=== PATIENT | male | born 1955 | race Caucasian/White ===

== ENCOUNTER 2023-11-26 14:19 | Outpatient (AMB) | payer MEDICARE, SELFPAY ==
--- NOTE | 2023-11-26 14:30 | A.OFFPC_ITS ---
Vital Signs 11/26/23 14:36 11/26/23 15:10 Height 5 ft 11 in Weight 221 lb BMI 30.8 BP 145/87 H 132/78 Blood Pressure Location Lt brachial Lt brachial Position Sitting Pulse 67 Pulse Source Pulse Oximeter Pulse Oximetry (%) 97 Oxygen Delivery Method Room Air Intake Visit Reasons: est care Intake Note: [place] [facility] [place] [facility] [place]. Patient would like to discuss right sided hip pain with exertion. Patient reports itching around the anal area. Electromechanical Equipment Tester Required: No Accompanied by: Self / Same As Patient Allergies No Known Allergies Allergy (Verified 11/26/23 14:41) Medication List - Last Reconciled 12/04/23 by Mesha Lopez MD tamsulosin 0.4 mg PO DAILY 90 days Tobacco use date assessed: 11/26/23 Fall risk assessment: No Falls in past year Last assessed Fall Risk: 11/26/23 Dental Screening Dental Screen Date: 11/26/23 Did you have a dental visit in the last 12 months?: Yes Did you have a dental problem in the last 6 months where you did not have access to dental care?: No Was dental information given to patient?: Patient has dentist HPI HPI Comments History of Present Illness Details The patient is a 68-year-old male with a past medical history of gout, hemorrhoids presenting for follow-up. MSK: Reports increased right hip pain. Pain with walking, laying on the hip. Chronic but worsening. Gout: No interval episodes. 2 episodes in 2021 to 2022. Patient reports increased frequency, hesitancy with urination Colonoscopy 03/10/2019-5 year repeat was recommended ROS see HPI. PHYSICAL EXAM: GENERAL: Alert and oriented x 3. NAD EYES: EOMI. Anicteric. HENT: Moist mucous membranes. No scleral icterus. No cervical lymphadenopathy. LUNGS: Clear to auscultation bilaterally. CARDIOVASCULAR: Regular rate and rhythm. No murmur. No JVD. ABDOMEN: Soft, non-tender +bs EXTREMITIES: No edema. Non-tender. SKIN: No rashes or lesions. Warm. NEUROLOGIC: No focal neurological deficits. CN II-XII grossly intact PSYCHIATRIC: Cooperative. Appropriate mood and affect [facility] Medical History Obese Hemorrhoids Gout Surgical History Hx of tooth extraction History of colonoscopy Family History Mother Kidney disease Father Kidney disease Social History Household Members: Spouse Housing: House Are you a primary infant childcare provider to a significant other at home: No Do you presently have visiting nurse or other home services: No Alcohol intake: current Alcohol intake frequency: a few times a week Alcohol type: beer Patient Tobacco Use Status: Current someday Tobacco user Tobacco use type: Cigar (When golfing and nothing consistent.) e-Cigarette/Vaping Use: Never Used service: No Current occupational status: retired Gender identity: Male Cognitive needs: No Hearing needs: No Vision needs: Yes (wears glasses) Questionnaire PHQ-9 Over the last 2 weeks, how often have you been bothered by any of the following problems? 1. Little interest or pleasure in doing things: not at all 2. Feeling down, depressed, or hopeless: not at all 3. Trouble falling or staying asleep, or sleeping too much: not at all 4. Feeling tired or having little energy: several days 5. Poor appetite or overeating: not at all 6. Feeling bad about yourself - or that you are a failure or have let yourself or your family down: not at all 7. Trouble concentrating on things, such as reading the newspaper or watching television: not at all 8. Moving or speaking so slowly that other people could have noticed. Or the opposite - being so fidgety or restless that you have been moving around a lot more than usual: not at all 9. Thoughts that you would be better off or of hurting yourself in some way: not at all Total score: 1 Depression Screening Interpretation: Negative (neg) Depression Screening Done: Yes 34844 - PHQ-9 Billing: Yes Source: Developed by Drs. Artemio Pool, Raine Coates, Laith Sood and colleagues, with an educational ben from [employer]. Thrive Questionnaire Date Thrive assessed: 11/26/23 I am a: Patient What is your living situation today?: I have a steady place to live Within the past 12 months, did the food you bought not last and you didn't have the money to get more?: Never true Within the past 12 months, did you worry whether your food would run out before you got money to buy more?: Never true Do you have trouble paying for medicines?: No Do you have trouble getting transportation to medical appointments?: No Do you have trouble paying your heating and electricity bill?: No Do you have trouble taking care of your child, family member or friend?: No Do you have trouble with day-to-day activities such as bathing, preparing meals, shopping, managing finances, etc.?: No Are you currently unemployed and looking for a job?: No Are you interested in more education?: No Please select the resources that you would like help with: None Currently or been in a relationship where the following occur: No concerns reported THRIVE Score: 0 AUDIT C Alcohol Use Questionnaire (AUDIT-C) 1. How often do you have a drink containing alcohol?: Never 3. How often do you have six or more drinks on one occasion?: Never Total Score: 0 MIRANDA-7 AMB Questionnaire MIRANDA-7 Date MIRANDA - 7 assessed: 11/26/23 Feeling nervous, anxious, or on edge: 0 = Not at all Not being able to stop or control worryin = Not at all Worrying too much about different things: 0 = Not at all Trouble relaxin = Not at all Being so restless that it is hard to sit still: 0 = Not at all Becoming easily annoyed or irritable: 1 = Several days Feeling afraid as if something awful might happen: 0 = Not at all Total MIRANDA-7 score (0-4 normal; 5-9 mild; 10-14 moderate; 15-21 severe): 1 Source: Developed by Drs. Artemio Pool, Raine Coates, Laith Sood and colleagues, with an educational ben from [employer]. MIRANDA-7 Assessment Billing MIRANDA-7 Assessment Tool: MIRANDA-7 Assessment 64673 Physical exam (Primary Care) Vital Signs: Last Vital Signs Pulse 67 11/26/23 14:36 BP 132/78 11/26/23 15:10 Pulse Ox 97 11/26/23 14:36 Oxygen Delivery Method Room Air 11/26/23 14:36 BMI result Body Mass Index 30.8 Tobacco/Smoking Status: Tobacco use Status Tobacco use date assessed 11/26/23 11/26/23 14:51 Patient Tobacco Use Status Current someday Tobacco 11/26/23 14:51 Tobacco use type Cigar (When golfing and 11/26/23 14:51 nothing consistent.) e-Cigarette/Vaping Use Never Used 11/26/23 14:46 PHQ-9: PHQ-9 Score PHQ-9: Total score 1 12/04/23 09:33 Depression Screening Interpretation: Negative (neg) Thrive Assessment: Date of Thrive Assessment Date Thrive assessed 11/26/23 11/26/23 14:51 Currently or been in a relationship where the following occur: No concerns reported Assessment and Plan Assessment & Plan (1) Gout: Code(s): M10.9 - Gout, unspecified Qualifiers: Chronicity: unspecified Gout etiology: unspecified cause Gout site: unspecified site Qualified Code(s): M10.9 - Gout, unspecified (2) Hemorrhoids: Code(s): K64.9 - Unspecified hemorrhoids Qualifiers: Hemorrhoid type: unspecified Qualified Code(s): K64.9 - Unspecified hemorrhoids Plan: Some anal pruritus. Topical cream, fam recommended (3) Polyuria: Code(s): R35.89 - Other polyuria Plan: Trial tamsulosin. Referral to urology (4) Right hip pain: Code(s): M25.551 - Pain in right hip Plan: referral to orthopedics Orders: Orders Complete Blood Count Auto Diff 11/26/23 Z13.0 - Encounter for screening for diseases of the blood and blood-forming organs and certain disorders involving the immune mechanism, Z13.228 - Encounter for screening for other metabolic disorders, Z12.5 - Encounter for screening for malignant neoplasm of prostate, M10.9 - Gout, unspecified, R35.89 - Other polyuria Comprehensive Met. Panel 11/26/23 Z13.0 - Encounter for screening for diseases of the blood and blood-forming organs and certain disorders involving the immune mechanism, Z13.228 - Encounter for screening for other metabolic disorders, Z12.5 - Encounter for screening for malignant neoplasm of prostate, M10.9 - Gout, unspecified, R35.89 - Other polyuria Prostate Specific Antigen 11/26/23 Z13.0 - Encounter for screening for diseases of the blood and blood-forming organs and certain disorders involving the immune mechanism, Z13.228 - Encounter for screening for other metabolic disorders, Z12.5 - Encounter for screening for malignant neoplasm of prostate, M10.9 - Gout, unspecified, R35.89 - Other polyuria Lipid Panel 11/26/23 Z13.0 - Encounter for screening for diseases of the blood and blood-forming organs and certain disorders involving the immune mechanism, Z13.228 - Encounter for screening for other metabolic disorders, Z12.5 - Encounter for screening for malignant neoplasm of prostate, M10.9 - Gout, unspecified, R35.89 - Other polyuria Referrals Gastroenterology Referral Z12.11 - Encounter for screening for malignant neoplasm of colon Urology Referral Z13.0 - Encounter for screening for diseases of the blood and blood-forming organs and certain disorders involving the immune mechanism, Z13.228 - Encounter for screening for other metabolic disorders, Z12.5 - Encounter for screening for malignant neoplasm of prostate, M10.9 - Gout, unspecified, R35.89 - Other polyuria Orthopedics Referral M25.551 - Pain in right hip Medications: New tamsulosin 0.4 mg PO DAILY 90 caps 3RF 90 days Coding Level of Care Code Est Pt Level 5 (18752) Diagnoses Gout, unspecified cause, unspecified chronicity, unspecified site M10.9 Chronicity: unspecified Gout etiology: unspecified cause Gout site: unspecified site Hemorrhoids, unspecified hemorrhoid type K64.9 Hemorrhoid type: unspecified Polyuria R35.89 Right hip pain M25.551 Additional Codes MIRANDA-7 Assessment Billing - MIRANDA-7 Assessment Tool: MIRANDA-7 Assessment 93878 ([id number]) Time Spent (min) 48
[2023-11-26 14:36] VITALS: BP 145/87; PULSE 67; O2SAT 97; BMI 30.8
[2023-11-26 15:10] VITALS: BP 132/78
== END 2023-11-26 15:38 | disposition home or self-care (01) ==
PROVIDERS: Visit Provider Internal Medicine
DX: M10.9 Gout, unspecified (principal); K64.9 Unspecified hemorrhoids; R35.89 Other polyuria; M25.551 Pain in right hip
CPT/HCPCS: 99215

== ENCOUNTER 2023-11-26 15:39 | Outpatient (REF) | payer MEDICARE, SELFPAY ==
[2023-11-26 17:37] LABS: MANUAL DIFF FLAG NO
[2023-11-26 17:45] LABS: Basophils Absolute Auto 0.1 X10*3/uL (0.0-0.2); Basophils Percent Auto 1.4 % (0-2); Eosinophils Absolute Auto 0.2 X10*3/uL (0.0-0.4); Hematocrit 47.8 % (42.0-52.0); Hemoglobin 15.9 g/dl (14.0-18.0); Imm Gran Abs Auto 0.03 X10*3/uL (0.00-0.03); Imm Gran Pct Auto 0.4 % (0.0-0.4); Lymphocytes Absolute Auto 2.2 X10*3/uL (1.2-4.9); Lymphocytes Percent Auto 25.6 % (20-40); Mean Corpuscular HGB Conc 33.3 g/dl (31.0-36.0); Mean Corpuscular Hemoglobin 33.1 pg (27.0-33.0); Mean Corpuscular Volume 99.4 fL (80.0-98.0); Monocytes Percent Auto 11.7 % (2-11); Neutrophils Percent Auto 58.9 % (45-73); Platelet Count 200 X10*3/uL (160-400); Red Blood Count 4.81 X10*6/uL (4.60-5.80); Red Cell Distribution Width 12.7 % (11.0-16.0); White Blood Count 8.4 X10*3/uL (4.8-10.8)
[2023-11-26 17:56] LABS: Alanine Aminotransferase 33 U/L (0-40); Albumin Level 4.2 g/dL (3.5-5.0); Alkaline Phosphatase 59 U/L (39-117); Anion Gap 14 (12-20); Aspartate Amino Transferase 27 U/L (5-37); Bilirubin Total 0.4 mg/dL (0.0-1.0); Blood Urea Nitrogen 22 mg/dL (9-16); Calcium 9.5 mg/dL (8.4-10.2); Carbon Dioxide 27 mmol/L (22-29); Chloride 103 mmol/L (96-108); Cholesterol 186 mg/dL (<200); Estimated Glomerular Filt Rate 56; Glucose Random 82 mg/dL (60-115); HDL Cholesterol 45 mg/dL (>40); LDL Cholesterol Calculated 73 mg/dL (<100); Potassium 4.3 mmol/L (3.3-5.1); Sodium 140 mmol/L (135-145); Triglycerides 343 mg/dL (<150)
[2023-11-26 18:15] LABS: Prostate Specific Antigen 0.18 ng/mL (<0.05-4.0)
== END 2023-11-26 15:40 | disposition home or self-care (01) ==
LOC: HO.WFDLDS 15:39
PROVIDERS: Visit Provider Internal Medicine
DX: Z13.0 Encounter for screening for diseases of the blood and blood-forming organs and certain disorders involving the immune mechanism (principal); Z13.228 Encounter for screening for other metabolic disorders; M10.9 Gout, unspecified; R35.89 Other polyuria; Z12.5 Encounter for screening for malignant neoplasm of prostate
CPT/HCPCS: 36415; 80053; 80061; 84153; 85025

== ENCOUNTER 2024-01-29 08:37 | Outpatient (AMB) | payer MEDICARE, SELFPAY ==
--- NOTE | 2024-01-29 09:07 | A.OFFVIS_ITS ---
Intake Visit Reasons: polyuria Intake Note: New Patient presents for initial visit for Polyuria Urology Medications: tamsulosin Blood Thinner: none PVR: 32ml's Cryptologic Support Specialist Required: No Accompanied by: Self / Same As Patient Allergies No Known Allergies Allergy (Verified 01/29/24 10:34) Medication List - Last Reconciled 01/29/24 by BEL Montgomery tamsulosin 0.4 mg PO DAILY 90 days HPI Comments Details: Juan Ramon is a pleasant 68-year-old male patient. He has a past medical history of gout, hemorrhoids, and obesity. He presents to the office today as a new patient for a longstanding history of lower urinary tract symptoms. In discussion with the patient today he reports noting over the last 4-5 years noting ongoing issues with long periods of taking time to empty his bladder as well as urinary hesitancy. He reports having followed up with his PCP at which time he was started on Flomax in recommendations were made for urology referral for further assessment evaluation. He reports noting Flomax has been helpful. In review of patient's chart it appears PSA 12/10 0.2. When asked he denies urinary urgency, urinary frequency, incontinence, nocturia, hematuria, dysuria, foul smelling urine, flank pain, fever, and or chills. We discussed at length potential causes of lower urinary tract symptoms patient is experiencing. In office urinalysis results reviewed with the patient today. PVR 32 mL. Discussed obtaining retroperitoneal ultrasound for further assessment evaluation. Discussed possible near future in office cystoscopy for further assessment evaluation. He otherwise offers no other issues or concerns at this time. [facility] Medical History Obese Hemorrhoids Gout Surgical History Hx of tooth extraction History of colonoscopy Family History Mother Kidney disease Father Kidney disease Social History Household Members: Spouse Housing: House Are you a primary laboratory animal caretaker to a significant other at home: No Do you presently have visiting nurse or other home services: No 75 years or older and lives alone: No Alcohol intake: current Alcohol intake frequency: a few times a week Alcohol type: beer Patient Tobacco Use Status: Current someday Tobacco user Tobacco use type: Cigar (When golfing and nothing consistent.) e-Cigarette/Vaping Use: Never Used service: No Current occupational status: retired Gender identity: Male Cognitive needs: No Hearing needs: No Vision needs: Yes (wears glasses) Review of Systems Const All systems reviewed & are unremarkable except as noted in HPI and below Physical Exam Const General: cooperative, healthy appearing, comfortable, no acute distress, well developed, alert and awake Orientation/consciousness: patient oriented x3 Limitations: no limitations HEENT Head: Yes normal to inspection, Yes normocephalic and Yes atraumatic Ears: hearing grossly normal bilaterally Eyes General: appearance normal, both eyes and all related structures Neck Neck: Yes normal visual inspection and Yes trachea midline Chest Chest palpation & inspection: normal inspection of the chest Resp Effort & Inspection: normal respiratory effort and able to speak in complete sentences Cardio Rate: regular rate GI Inspection: Yes normal to inspection General: Yes no CVA tenderness Back/Spine/Pelvis Back: no CVA tenderness Skin General skin exam: no rashes or lesions noted Neuro General: patient oriented x3 Extrem General: Yes normal to inspection Psych Appearance: grossly normal and well kempt Mental Status: mental status grossly normal Speech and movement: Normal speech and movement present and Clear speech present Affect: normal affect Attitude: cooperative Thought process: Normal thought process present Thought content: Normal thought content present Insight: Fair insight present (Psych) Judgement: Fair judgement present (Psych) Office Procedures Post Void Residual Post Residual Void Post Void Residual (PVR): 32 [id number] Void Residual by ultrasound Results AMB Urinalysis, Automated UA Leukoctes 0 Lizandro/uL Last Edit by Jayy Tovar on 01/29/24 09:21 UA Nitrite Last Edit by Jayy Tovar on 01/29/24 09:21 UA Urobilinogen 0.2 mg/dL Last Edit by Jayy Tovar on 01/29/24 09:21 UA Protein 0 mg/dL Last Edit by Jayy Tovar on 01/29/24 09:21 UA pH 7.0 Last Edit by Jayy Tovar on 01/29/24 09:21 UA Blood 0 Asael/uL Last Edit by Jayy Tovar on 01/29/24 09:21 UA Specific [place] 1.005 Last Edit by Jayy Tovar on 01/29/24 09:21 UA Ketone Last Edit by Jayy Tovar on 01/29/24 09:21 UA Bilirubin 0 mg/dL Last Edit by Jayy Tovar on 01/29/24 09:21 UA Glucose 0 mg/dL Last Edit by Jayy Tovar on 01/29/24 09:21 Results Reviewed Results Reviewed: Laboratory Last Values Urine pH (Auto) 7.0 01/29/24 09:20 Specific [place] (Auto) 1.005 01/29/24 09:20 Urine Protein (Auto) 0 mg/dL 01/29/24 09:20 Glucose (UA)(Auto) 0 mg/dL 01/29/24 09:20 Urine Blood (Auto) 0 Asael/uL 01/29/24 09:20 Urine Bilirubin (Auto) 0 mg/dL 01/29/24 09:20 Urine Urobilinogen (Auto) 0.2 mg/dL 01/29/24 09:20 Leukocyte Esterase (Auto) 0 Lizandro/uL 01/29/24 09:20 Assessment & Plan Assessment & Plan (1) History of urinary hesitancy: Code(s): Z87.898 - Personal history of other specified conditions Category: Medical (2) Weak urinary stream: Code(s): R39.12 - Poor urinary stream Category: Medical Plan In office urinalysis results reviewed with the patient today; as noted above. PVR 32 mL. Continue Flomax as patient reports this has been helpful; discussed increase to 0.8 mg Will obtain retroperitoneal ultrasound for further assessment evaluation. Discussed potential causes for lower urinary tract symptoms patient is experiencing. Recent PSA results reviewed with the patient today; as noted above. MIO offered however deferred. Discussed possible near future in office cystoscopy if symptoms persist and/or worsen. Follow-up in 1-3 months with imaging to be completed prior; or sooner with any issues, concerns, and or questions. Orders: Orders AMB Urinalysis Automated Today Z13.9 - Encounter for screening, unspecified US retroperitoneal comp Today Z87.898 - Personal history of other specified conditions AMB Post Void Residual by ultrasound Today R35.89 - Other polyuria Medications: Changed From tamsulosin 0.4 mg PO DAILY 90 days 90 caps 3RF To tamsulosin 0.8 mg (2 x 0.4 mg) PO DAILY 180 caps 0RF 90 days Patient Instructions: The patient had an opportunity to ask questions regarding the treatment plan. All questions were answered. Physical exam, labs, and imaging were discussed and reviewed in detail. As well as risks, benefits, and discussion of treatment choices. No major barriers to understanding were identified. The patient expressed understanding and agreement with the above treatment plan. The patient was made aware they should contact our office by phone for worsening of their current condition, the appearance of new symptoms, or with any questions or concerns. Compliance is encouraged with any medications and follow up testing that is ordered. It is a privilege to be allowed the opportunity to participate in? your urological care.? Again, if you have any questions or concerns If you have any questions or concerns please do not hesitate to contact me. The office is [phone]. This note is constructed using voice recognition software. While every effort has been made to ensure accuracy academic advisement director errors may have been included. Yours sincerely, BEL Montgomery Coding Level of Care Code New Pt Level 3 (66027) Diagnoses History of urinary hesitancy Z87.898 Weak urinary stream R39.12 CPT Codes Post Residual Void - PVR CPT Code: 53475-Ratd Void Residual by ultrasound ([id number])
== END 2024-01-29 10:03 | disposition home or self-care (01) ==
PROVIDERS: Visit Provider Nurse Practitioner Family
DX: Z87.898 Personal history of other specified conditions (principal); R39.12 Poor urinary stream; Z13.9 Encounter for screening, unspecified
CPT/HCPCS: 99203

== ENCOUNTER → 2024-01-29 08:37 | Outpatient (BNVA) | payer MEDICARE, SELFPAY | PROVIDERS: Visit Provider Nurse Practitioner Family | DX: R35.89 Other polyuria (principal); R39.12 Poor urinary stream; Z87.898 Personal history of other specified conditions | CPT/HCPCS: 51798; 81003; 99202 ==

== ENCOUNTER 2024-02-17 12:30 | Outpatient (REF) | payer MEDICARE, SELFPAY ==
--- NOTE | ~2024-02-17 | US_ITS ---
EXAMINATION: US RETROPERITONEAL COMPLETE (RENAL) CLINICAL INFORMATION: Urinary hesitancy. COMPARISON: None available. TECHNIQUE: Real-time imaging of the kidneys and bladder. FINDINGS: RIGHT KIDNEY: 10.4 x 7.0 x 4.0 cm (SAG x AP x TRV). The kidney is normal in size, contour, and echogenicity. Renal cortical thickness is normal. No calculi or focal parenchymal lesions. No hydronephrosis. There is a 3.7 cm anechoic structure and the renal hilum without flow on color Doppler interrogation. LEFT KIDNEY: 11.7 x 6.3 x 5.0 cm (SAG x AP x TRV). The kidney is normal in size, contour, and echogenicity. Renal cortical thickness is normal. No calculi or focal parenchymal lesions. No hydronephrosis. BLADDER: Well distended and fluid-filled. Bilateral ureteral jets are demonstrated. Prevoid bladder volume is 532 mL. Postvoid bladder volume is 114 mL. PROSTATE GLAND: The prostate volume is 23.0 mL. Prostate gland measures 4.4 cm in maximum dimension. US/US retroperitoneal comp IMPRESSION: 3.7 cm cyst versus less likely extrarenal pelvis, right kidney. No hydronephrosis.. Electronically signed by: Bernardo Villarreal MD 03/25/2024 10:46 AM EST
== END 2024-02-17 12:31 | disposition home or self-care (01) ==
LOC: HO.US 12:30
PROVIDERS: PCP Internal Medicine; Visit Provider Nurse Practitioner Family
DX: Z87.898 Personal history of other specified conditions (principal)
CPT/HCPCS: 76770

== ENCOUNTER → 2024-02-17 12:33 | Outpatient (BNV) | payer MEDICARE, SELFPAY | PROVIDERS: PCP Internal Medicine; Visit Provider Radiology Diagnostic Radiology | DX: R39.11 Hesitancy of micturition (principal) | CPT/HCPCS: 76770 ==

== ENCOUNTER 2024-03-19 09:19 | Outpatient (AMB) | payer MEDICARE, SELFPAY ==
--- NOTE | 2024-03-19 09:22 | A.OFFVIS_ITS ---
Intake Visit Reasons: 2m/US(set) Intake Note: Patient presents today for follow up on: weak urinary stream and ultrasound results Imaging completed: 02/17/24 Urology Medications: tamsulosin Blood Thinner: none PVR: 18ml's Manager Winter Required: No Accompanied by: Self / Same As Patient Allergies No Known Allergies Allergy (Verified 03/19/24 10:07) Medication List - Last Reconciled 03/19/24 by BEL Montgomery tamsulosin 0.8 mg (2 x 0.4 mg) PO DAILY 90 days HPI Comments Details: Juan Ramon is a pleasant 68-year-old male patient. He has a past medical history of gout, hemorrhoids, and obesity. He presents to the office today for follow-up. Of note, patient was seen approximately 6 weeks ago as a new patient for a longstanding history of lower urinary tract symptoms at which time a retroperitoneal ultrasound was ordered for further assessment evaluation. These results reviewed with the patient today. Retroperitoneal ultrasound 02/10 notes bilateral kidneys are normal in size, contour, and echogenicity. Bilateral kidneys with no lesions, calculi, and or hydronephrosis. The bladder is well distended. Bilateral ureteral jets are demonstrated. Pre void bladder volume is approximately 530 mL. Postvoid bladder volume is approximately 115 mL. The prostate volume is 23 mL prostate gland measures 4.4 cm in maximum dimension. He reports feeling Flomax has been somewhat helpful in helping him empty his bladder. He reports his main concern was feeling it takes a long periods of time to empty his bladder as well as urinary hesitancy. PSA 12/10 0.2. When asked he denies urinary urgency, urinary frequency, incontinence, nocturia, hematuria, dysuria, foul smelling urine, flank pain, fever, and or chills. We discussed at length potential causes of lower urinary tract symptoms patient is experiencing. In office urinalysis results reviewed with the patient today. PVR 18 mL. Discussed possible near future in office cystoscopy for further assessment evaluation if symptoms continue and or worsen. He otherwise offers no other issues or concerns at this time. [facility] Medical History Obese Hemorrhoids Gout Surgical History Hx of tooth extraction History of colonoscopy Family History Mother Kidney disease Father Kidney disease Social History Household Members: Spouse Housing: House Are you a primary direct care worker to a significant other at home: No Do you presently have visiting nurse or other home services: No 75 years or older and lives alone: No Alcohol intake: current Alcohol intake frequency: a few times a week Alcohol type: beer Patient Tobacco Use Status: Current someday Tobacco user Tobacco use type: Cigar (When golfing and nothing consistent.) e-Cigarette/Vaping Use: Never Used service: No Current occupational status: retired Gender identity: Male Cognitive needs: No Hearing needs: No Vision needs: Yes (wears glasses) Review of Systems Const All systems reviewed & are unremarkable except as noted in HPI and below Physical Exam Const General: cooperative, healthy appearing, comfortable, no acute distress, well developed, alert and awake Orientation/consciousness: patient oriented x3 Limitations: no limitations HEENT Head: Yes normal to inspection, Yes normocephalic and Yes atraumatic Ears: hearing grossly normal bilaterally Eyes General: appearance normal, both eyes and all related structures Neck Neck: Yes normal visual inspection and Yes trachea midline Chest Chest palpation & inspection: normal inspection of the chest Resp Effort & Inspection: normal respiratory effort and able to speak in complete sentences Cardio Rate: regular rate GI Inspection: Yes normal to inspection General: Yes no CVA tenderness Back/Spine/Pelvis Back: no CVA tenderness Skin General skin exam: no rashes or lesions noted Neuro General: patient oriented x3 Extrem General: Yes normal to inspection Psych Appearance: grossly normal and well kempt Mental Status: mental status grossly normal Speech and movement: Normal speech and movement present and Clear speech present Affect: normal affect Attitude: cooperative Thought process: Normal thought process present Thought content: Normal thought content present Insight: Fair insight present (Psych) Judgement: Fair judgement present (Psych) Office Procedures Post Void Residual Post Residual Void Post Void Residual (PVR): 18 [id number] Void Residual by ultrasound Results AMB Urinalysis, Automated UA Leukoctes 0 Lizandro/uL Last Edit by Jayy Tovar on 03/19/24 09:59 UA Nitrite Last Edit by Jayy Tovar on 03/19/24 09:59 UA Urobilinogen 0.2 mg/dL Last Edit by Jayy Tovar on 03/19/24 09:59 UA Protein 0 mg/dL Last Edit by Gengonick Tovar on 03/19/24 09:59 UA pH 7.5 Last Edit by Headroomdeejay [employer] on 03/19/24 09:59 UA Blood 0 Asael/uL Last Edit by Headroomdeejay Tovar on 03/19/24 09:59 UA Specific Everest 1.010 Last Edit by Gengonick Tovar on 03/19/24 09:59 UA Ketone Last Edit by Headroomdeejay Tovar on 03/19/24 09:59 UA Bilirubin 0 mg/dL Last Edit by Gengonick Tovar on 03/19/24 09:59 UA Glucose 0 mg/dL Last Edit by Headroomdeejay Tovar on 03/19/24 09:59 Results Reviewed Results Reviewed: Laboratory Last Values Urine pH (Auto) 7.5 03/19/24 09:32 Specific Everest (Auto) 1.010 03/19/24 09:32 Urine Protein (Auto) 0 mg/dL 03/19/24 09:32 Glucose (UA)(Auto) 0 mg/dL 03/19/24 09:32 Urine Blood (Auto) 0 Asael/uL 03/19/24 09:32 Urine Bilirubin (Auto) 0 mg/dL 03/19/24 09:32 Urine Urobilinogen (Auto) 0.2 mg/dL 03/19/24 09:32 Leukocyte Esterase (Auto) 0 Lizandro/uL 03/19/24 09:32 Date of Service: 02/17/24 EXAMINATION: US RETROPERITONEAL COMPLETE (RENAL) FINDINGS: RIGHT KIDNEY: 10.4 x 7.0 x 4.0 cm (SAG x AP x TRV). The kidney is normal in size, contour, and echogenicity. Renal cortical thickness is normal. No calculi or focal parenchymal lesions. No hydronephrosis. There is a 3.7 cm anechoic structure and the renal hilum without flow on color Doppler interrogation. LEFT KIDNEY: 11.7 x 6.3 x 5.0 cm (SAG x AP x TRV). The kidney is normal in size, contour, and echogenicity. Renal cortical thickness is normal. No calculi or focal parenchymal lesions. No hydronephrosis. BLADDER: Well distended and fluid-filled. Bilateral ureteral jets are demonstrated. Prevoid bladder volume is 532 mL. Postvoid bladder volume is 114 mL. PROSTATE GLAND: The prostate volume is 23.0 mL. Prostate gland measures 4.4 cm in maximum dimension. IMPRESSION: 3.7 cm cyst versus less likely extrarenal pelvis, right kidney. No hydronephrosis. Assessment & Plan Assessment & Plan (1) History of urinary hesitancy: Code(s): Z87.898 - Personal history of other specified conditions Category: Medical (2) Weak urinary stream: Code(s): R39.12 - Poor urinary stream Category: Medical Plan In office urinalysis results reviewed with the patient today; as noted above. PVR 18mLs. Continue Flomax as patient reports this has been helpful Recent retroperitoneal ultrasound results reviewed with the patient today; as noted above. Discussed potential causes for lower urinary tract symptoms patient is experiencing. Discussed possible near future in office cystoscopy if symptoms persist and/or worsen. Follow-up in 1 year with PSA and PVR; or sooner with any issues, concerns, and or questions. Orders: Orders AMB Urinalysis Automated 03/19/24 Z13.9 - Encounter for screening, unspecified Prostate Specific Antigen 1 Year R39.12 - Poor urinary stream, Z87.898 - Personal history of other specified conditions AMB Post Void Residual by ultrasound 03/19/24 R39.12 - Poor urinary stream Patient Instructions: The patient had an opportunity to ask questions regarding the treatment plan. All questions were answered. Physical exam, labs, and imaging were discussed and reviewed in detail. As well as risks, benefits, and discussion of treatment choices. No major barriers to understanding were identified. The patient expressed understanding and agreement with the above treatment plan. The patient was made aware they should contact our office by phone for worsening of their current condition, the appearance of new symptoms, or with any questions or concerns. Compliance is encouraged with any medications and follow up testing that is ordered. It is a privilege to be allowed the opportunity to participate in? your urological care.? Again, if you have any questions or concerns If you have any questions or concerns please do not hesitate to contact me. The office is [phone]. This note is constructed using voice recognition software. While every effort has been made to ensure accuracy technical support coordinator errors may have been included. Yours sincerely, CRISTAL Montgomery-ALEYDA Coding Level of Care Code Est Pt Level 3 (30444) Diagnoses History of urinary hesitancy Z87.898 Weak urinary stream R39.12 CPT Codes Post Residual Void - PVR CPT Code: 33383-Easv Void Residual by ultrasound ([id number])
== END 2024-03-19 10:16 | disposition home or self-care (01) ==
LOC: HO.HUSH 09:20
PROVIDERS: Visit Provider Nurse Practitioner Family
DX: Z87.898 Personal history of other specified conditions (principal); R39.12 Poor urinary stream
CPT/HCPCS: 99213

== ENCOUNTER → 2024-03-19 09:19 | Outpatient (BNVA) | payer MEDICARE, SELFPAY | PROVIDERS: Visit Provider Nurse Practitioner Family | DX: R39.12 Poor urinary stream (principal); Z87.898 Personal history of other specified conditions | CPT/HCPCS: 51798; 81003; 99212 ==

== ENCOUNTER 2024-05-25 09:09 | Outpatient (AMB) | payer MEDICARE, SELFPAY ==
--- NOTE | 2024-05-25 09:13 | MHC.PC.OV ---
Vital Signs 05/25/24 09:20 05/25/24 09:28 Height 5 ft 11 in Weight 218 lb 8 oz BMI 30.5 BP 142/94 H 128/82 Blood Pressure Location Lt brachial Lt brachial Position Sitting Sitting Pulse 66 Pulse Source Pulse Oximeter Pulse Oximetry (%) 96 Oxygen Delivery Method Room Air Intake Visit Reasons: Swelling Ankles Intake Note: Swelling ankles about 7 days ago, left side. Injured ankle over the summer. Managed Care Liaison Required: No Allergies No Known Allergies Allergy (Verified 05/25/24 09:14) Tobacco use date assessed: 05/25/24 Dental Screening Dental Screen Date: 11/26/23 HPI HPI Comments History of Present Illness Details The patient is a 68-year-old male with a past medical history of gout, hemorrhoids presenting for follow-up. MSK: Patient is presenting for left ankle pain and swelling. Explains that a couple months ago walking in field at concert. Twisted the left ankle in a divot. Now has intermittent left ankle swelling and discomfort. Last visit with right hip pain-Patient went to Dr Woods, went to physical therapy with great reduction in pain and would like to pursue PT for the ankle Reports increased right hip pain. Pain with walking, laying on the hip. Chronic but worsening. Gout: No interval episodes. 2 episodes in 2021 to 2022. Patient reports increased frequency, hesitancy with urination. Saw urology. On flomax Colonoscopy 03/10/2019-5 year repeat was recommended. he was referred ROS see HPI. +sinus congestion, cough x 2 days PHYSICAL EXAM: GENERAL: Alert and oriented x 3. NAD EYES: EOMI. Anicteric. HENT: Moist mucous membranes. Sinus congestion LUNGS: Clear to auscultation bilaterally. CARDIOVASCULAR: Regular rate and rhythm. No murmur. No JVD. ABDOMEN: Soft, non-tender +bs EXTREMITIES: No edema. Non-tender. SKIN: No rashes or lesions. Warm. NEUROLOGIC: No focal neurological deficits. CN II-XII grossly intact PSYCHIATRIC: Cooperative. Appropriate mood and affect [facility] Medical History Obese Hemorrhoids Gout Surgical History Hx of tooth extraction History of colonoscopy Family History Mother Kidney disease Father Kidney disease Social History Household Members: Spouse Housing: House Are you a primary care team coordinator scheduler to a significant other at home: No Do you presently have visiting nurse or other home services: No 75 years or older and lives alone: No Alcohol intake: current Alcohol intake frequency: a few times a week Alcohol type: beer Patient Tobacco Use Status: Current someday Tobacco user Tobacco use type: Cigar (When golfing and nothing consistent.) e-Cigarette/Vaping Use: Never Used Use of substances other than those prescribed or required for medical reasons: No service: No Current occupational status: retired Gender identity: Male Cognitive needs: No Hearing needs: No Vision needs: Yes (wears glasses) Questionnaire PHQ-9 Over the last 2 weeks, how often have you been bothered by any of the following problems? 1. Little interest or pleasure in doing things: not at all 2. Feeling down, depressed, or hopeless: not at all 3. Trouble falling or staying asleep, or sleeping too much: not at all 4. Feeling tired or having little energy: not at all 5. Poor appetite or overeating: not at all 6. Feeling bad about yourself - or that you are a failure or have let yourself or your family down: not at all 7. Trouble concentrating on things, such as reading the newspaper or watching television: not at all 8. Moving or speaking so slowly that other people could have noticed. Or the opposite - being so fidgety or restless that you have been moving around a lot more than usual: not at all 9. Thoughts that you would be better off or of hurting yourself in some way: not at all Total score: 0 Depression Screening Interpretation: Negative Depression Screening Done: Yes 48539 - PHQ-9 Billing: Yes Source: Developed by Drs. Artemio Pool, Raine Coates, Laith Sood and colleagues, with an educational ben from [employer]. Thrive Questionnaire Date Thrive assessed: 05/22/24 I am a: Patient What is your living situation today?: I have a steady place to live Within the past 12 months, did the food you bought not last and you didn't have the money to get more?: Never true Within the past 12 months, did you worry whether your food would run out before you got money to buy more?: Never true Do you have trouble paying for medicines?: No Do you have trouble getting transportation to medical appointments?: No Do you have trouble paying your heating and electricity bill?: No Do you have trouble taking care of your child, family member or friend?: No Do you have trouble with day-to-day activities such as bathing, preparing meals, shopping, managing finances, etc.?: No Are you currently unemployed and looking for a job?: No Are you interested in more education?: No Please select the resources that you would like help with: None Currently or been in a relationship where the following occur: No concerns reported THRIVE Score: 0 AUDIT C Alcohol Use Questionnaire (AUDIT-C) 1. How often do you have a drink containing alcohol?: 2-3 times a week 2. How many drinks containing alcohol do you have on a typical day when you are drinking?: 1 or 2 3. How often do you have six or more drinks on one occasion?: Less than monthly Total Score: 4 MIRANDA-7 AMB Questionnaire MIRANDA-7 Date MIRANDA - 7 assessed: 05/25/24 Feeling nervous, anxious, or on edge: 0 = Not at all Not being able to stop or control worryin = Not at all Worrying too much about different things: 0 = Not at all Trouble relaxin = Not at all Being so restless that it is hard to sit still: 0 = Not at all Becoming easily annoyed or irritable: 0 = Not at all Feeling afraid as if something awful might happen: 3 = Nearly every day Total MIRANDA-7 score (0-4 normal; 5-9 mild; 10-14 moderate; 15-21 severe): 3 Source: Developed by Drs. Artemio Pool, Raine Coates, Laith Sood and colleagues, with an educational ben from [employer]. MIRANDA-7 Assessment Billing MIRANDA-7 Assessment Tool: MIRANDA-7 Assessment 63661 Physical exam (Primary Care) Vital Signs: Last Vital Signs Pulse 66 05/25/24 09:20 BP 128/82 05/25/24 09:28 Pulse Ox 96 05/25/24 09:20 Oxygen Delivery Method Room Air 05/25/24 09:20 BMI result Body Mass Index 30.5 Tobacco/Smoking Status: Tobacco use Status Tobacco use date assessed 05/25/24 05/25/24 09:14 Patient Tobacco Use Status Current someday Tobacco 05/25/24 09:14 Tobacco use type Cigar (When golfing and 05/25/24 09:14 nothing consistent.) e-Cigarette/Vaping Use Never Used 05/25/24 09:14 PHQ-9: PHQ-9 Score PHQ-9: Total score 0 05/25/24 09:27 Depression Screening Interpretation: Negative Thrive Assessment: Date of Thrive Assessment Date Thrive assessed 05/22/24 05/25/24 09:14 Currently or been in a relationship where the following occur: No concerns reported Coding Level of Care Code Est Pt Level 4 (90271) Diagnoses Acute left ankle pain M25.572 Chronicity: acute Acute non-recurrent maxillary sinusitis J01.00 Sinusitis location: maxillary Chronicity: acute Recurrence: non-recurrent Additional Codes MIRANDA-7 Assessment Billing - MIRANDA-7 Assessment Tool: MIRANDA-7 Assessment 45961 ([id number]) PHQ-9 - 55017 - PHQ-9 Billing: Yes ([id number]) Assessment & Plan Assessment & Plan (1) Left ankle pain: Code(s): M25.572 - Pain in left ankle and joints of left foot Category: Medical Qualifiers: Chronicity: acute Qualified Code(s): M25.572 - Pain in left ankle and joints of left foot Plan: Subacute left ankl pain Referral to PT placed Negative shinnecock criteria (2) Sinusitis: Code(s): J32.9 - Chronic sinusitis, unspecified Category: Medical Qualifiers: Sinusitis location: maxillary Chronicity: acute Recurrence: non-recurrent Qualified Code(s): J01.00 - Acute maxillary sinusitis, unspecified Plan: Discussed likely viral. If symptoms continue, worsen or he develops fever he will take azithromycin 500x6 days Orders: Orders PT Evaluation and Treatment Today M25.572 - Pain in left ankle and joints of left foot Medications: New azithromycin 500 mg PO DAILY 6 tabs 0RF
[2024-05-25 09:20] VITALS: BP 142/94; PULSE 66; O2SAT 96; BMI 30.5
[2024-05-25 09:28] VITALS: BP 128/82
== END 2024-05-25 09:53 | disposition home or self-care (01) ==
PROVIDERS: PCP Internal Medicine; Visit Provider Internal Medicine
DX: M25.572 Pain in left ankle and joints of left foot (principal); J01.00 Acute maxillary sinusitis, unspecified

== ENCOUNTER → 2024-05-25 09:09 | Outpatient (BNVA) | payer MEDICARE, SELFPAY | PROVIDERS: PCP Internal Medicine; Visit Provider Internal Medicine | DX: M25.572 Pain in left ankle and joints of left foot (principal); J01.00 Acute maxillary sinusitis, unspecified | CPT/HCPCS: 96127; 99212 ==

== ENCOUNTER 2024-12-21 08:16 | Outpatient (AMB) | payer MEDICARE, SELFPAY ==
--- NOTE | 2024-12-21 08:25 | A.OFFPC_ITS ---
Vital Signs 12/21/24 08:30 Height 5 ft 11 in Weight 216 lb BMI 30.1 BP 132/80 Blood Pressure Location Lt brachial Position Sitting Respiration 14 Pulse 59 Pulse Source Pulse Oximeter Temp 98.2 F Temp Source Oral Pulse Oximetry (%) 96 Oxygen Delivery Method Room Air Intake Visit Reasons: annual Intake Note: Physical Terminal System Operator Required: No Allergies No Known Allergies Allergy (Verified 12/21/24 08:29) Tobacco use date assessed: 12/21/24 Fall risk assessment: No Falls in past year Last assessed Fall Risk: 12/21/24 Dental Screening Dental Screen Date: 12/21/24 Did you have a dental visit in the last 12 months?: Yes Did you have a dental problem in the last 6 months where you did not have access to dental care?: No Was dental information given to patient?: Patient has dentist HPI HPI Comments History of Present Illness Details The patient is a 69-year-old male with a past medical history of gout, hemorrhoids presenting for CPE MSK: History of left ankle and right hip pain both quiet-Patient went to Dr Woods, went to physical therapy with great reduction in klaudia Reports increased right hip pain. Pain with walking, laying on the hip. Chronic but worsening. Gout: No interval episodes. 2 episodes in 2021 to 2022. Following with urology. Off flomax. doing okay off medications Colonoscopy 03/10/2019-5 year repeat was recommended. Tells me this was repeated at [facility] last year ROS CONSTITUTIONAL: Denies weight loss, fever and chills. HEENT: Denies changes in vision and hearing. RESPIRATORY: Denies SOB and cough. CV: Denies palpitations and CP GI: Denies abdominal pain, nausea, vomiting and diarrhea. : Denies dysuria and urinary frequency. MSK: Denies new myalgia and joint pain. SKIN: Denies rash and pruritus. NEUROLOGICAL: Denies headache PSYCHIATRIC: Denies recent changes in mood. PHYSICAL EXAM: GENERAL: Alert and oriented x 3. NAD EYES: EOMI. Anicteric. HENT: Moist mucous membranes. Sinus congestion LUNGS: Clear to auscultation bilaterally. CARDIOVASCULAR: Regular rate and rhythm. No murmur. No JVD. ABDOMEN: Soft, non-tender +bs EXTREMITIES: No edema. Non-tender. SKIN: No rashes or lesions. Warm. NEUROLOGIC: No focal neurological deficits. CN II-XII grossly intact PSYCHIATRIC: Cooperative. Appropriate mood and affect [facility] Medical History Obese Hemorrhoids Gout Surgical History Hx of tooth extraction History of colonoscopy Family History Mother Kidney disease Father Kidney disease Social History Household Members: Spouse Housing: House Are you a primary career resource specialist to a significant other at home: No Do you presently have visiting nurse or other home services: No Alcohol intake: current Alcohol intake frequency: a few times a week Alcohol type: beer Patient Tobacco Use Status: Current someday Tobacco user Tobacco use type: Cigar (When golfing and nothing consistent.) e-Cigarette/Vaping Use: Never Used service: No Current occupational status: retired Gender identity: Male Cognitive needs: No Hearing needs: No Vision needs: Yes (wears glasses) Questionnaire Thrive Questionnaire Date Thrive assessed: 05/22/24 I am a: Patient What is your living situation today?: I have a steady place to live Within the past 12 months, did the food you bought not last and you didn't have the money to get more?: Never true Within the past 12 months, did you worry whether your food would run out before you got money to buy more?: Never true Do you have trouble paying for medicines?: No Do you have trouble getting transportation to medical appointments?: No Do you have trouble paying your heating and electricity bill?: No Do you have trouble taking care of your child, family member or friend?: No Do you have trouble with day-to-day activities such as bathing, preparing meals, shopping, managing finances, etc.?: No Are you currently unemployed and looking for a job?: No Are you interested in more education?: No Please select the resources that you would like help with: None Currently or been in a relationship where the following occur: No concerns reported THRIVE Score: 0 AUDIT C Alcohol Use Questionnaire (AUDIT-C) 1. How often do you have a drink containing alcohol?: 4 or more times a week 2. How many drinks containing alcohol do you have on a typical day when you are drinking?: 1 or 2 3. How often do you have six or more drinks on one occasion?: Never Total Score: 4 MIRANDA-7 AMB Questionnaire MIRANDA-7 Date MIRANDA - 7 assessed: 05/25/24 Source: Developed by Drs. Artemio Pool, Raine Coates, Laith Sood and colleagues, with an educational ben from [employer]. Physical exam (Primary Care) Vital Signs: Last Vital Signs Temp 98.2 F 12/21/24 08:30 Pulse 59 12/21/24 08:30 Resp 14 12/21/24 08:30 BP 132/80 12/21/24 08:30 Pulse Ox 96 12/21/24 08:30 Oxygen Delivery Method Room Air 12/21/24 08:30 BMI result Body Mass Index 30.1 Tobacco/Smoking Status: Tobacco use Status Tobacco use date assessed 12/21/24 12/21/24 08:34 Patient Tobacco Use Status Current someday Tobacco 12/21/24 08:26 Tobacco use type Cigar (When golfing and 12/21/24 08:26 nothing consistent.) e-Cigarette/Vaping Use Never Used 12/21/24 08:26 Thrive Assessment: Date of Thrive Assessment Date Thrive assessed 05/22/24 12/21/24 08:26 Currently or been in a relationship where the following occur: No concerns reported Coding Level of Care Code Est Pt Prev Care >65y(33225) Diagnoses Physical exam Z00.00 Gout, unspecified cause, unspecified chronicity, unspecified site M10.9 Gout site: unspecified site Gout etiology: unspecified cause Chronicity: unspecified Assessment & Plan Assessment & Plan (1) Physical exam: Code(s): Z00.00 - Encounter for general adult medical examination without abnormal findings (2) Gout: Code(s): M10.9 - Gout, unspecified Category: Medical Qualifiers: Gout site: unspecified site Gout etiology: unspecified cause Chronicity: unspecified Qualified Code(s): M10.9 - Gout, unspecified Plan Physical exam Interval history reviewed Preventive measures for age discussed Labs ordered colonoscopy utd per patient Orders: Orders Lipid Panel Today R35.89 - Other polyuria, Z00.00 - Encounter for general adult medical examination without abnormal findings, Z12.5 - Encounter for screening for malignant neoplasm of prostate, Z13.220 - Encounter for screening for lipoid disorders, Z13.228 - Encounter for screening for other metabolic disorders Complete Blood Count Auto Diff Today R35.89 - Other polyuria, Z00.00 - Encounter for general adult medical examination without abnormal findings, Z12.5 - Encounter for screening for malignant neoplasm of prostate, Z13.220 - Encounter for screening for lipoid disorders, Z13.228 - Encounter for screening for other metabolic disorders Comprehensive Met. Panel Today R35.89 - Other polyuria, Z00.00 - Encounter for general adult medical examination without abnormal findings, Z12.5 - Encounter for screening for malignant neoplasm of prostate, Z13.220 - Encounter for screening for lipoid disorders, Z13.228 - Encounter for screening for other metabolic disorders Hemoglobin A1c Today R35.89 - Other polyuria, Z00.00 - Encounter for general adult medical examination without abnormal findings, Z12.5 - Encounter for screening for malignant neoplasm of prostate, Z13.220 - Encounter for screening for lipoid disorders, Z13.228 - Encounter for screening for other metabolic disorders Medications: Discontinued tamsulosin Discontinued Reason: Doctor's Order 0.8 mg (2 x 0.4 mg) PO DAILY 90 days 180 caps 2RF
--- OUTSIDE RECORDS SUMMARY | 2024-12-21 08:27 | XMS_ITS | Encounter Summary ---
Author Organization [facility] Address [address] [place] [address] Care Team Providers Care Dish Room Worker Name Role Phone Pooja Kennedy MD Primary Care Provider Unavailable Reason for Visit * Reason Onset Date Comments Special Procedure 01/05/2019 Encounter Details Date Type Department Care Team Description 01/05/2019 Telephone Gastroenterology - [place] [address] [facility] [address] [place] [address] Grady Mercado MD Special Procedure Social History Tobacco Use Types Packs/Day Years Used Date Smoking Tobacco: Every Day Cigars Smokeless Tobacco: Never Comments:summer- one a day, in winter- once a week Alcohol Use Standard Drinks/Week Comments Yes 2 (1 standard drink = 0.6 oz pur e alcohol) 2 a day Sex Assigned at Date Recorded Not on file documented as of this encounter Miscellaneous Notes * Telephone Encounter - Ana Paula Talbot - 01/05/2019 10:46 AM EDT Patient is calling to have colonoscopy scheduled. Please call him. Thanks. documented in this encounter Plan of Treatment Not on file documented as of this encounter Visit Diagnoses Not on filedocumented in this encounter Care Teams Dish Room Worker Relationship Specialty Start Date End Date Pooja Kennedy MD PCP - General Internal Medicine 09/16/18 documented as of this encounter
[2024-12-21 08:30] VITALS: BP 132/80; PULSE 59; RESP 14; TEMP 36.8; O2SAT 96; BMI 30.1
== END 2024-12-21 09:09 | disposition home or self-care (01) ==
LOC: HO.HMCFM 08:17
PROVIDERS: PCP Internal Medicine; Visit Provider Internal Medicine
DX: M10.9 Gout, unspecified (principal)

== ENCOUNTER → 2024-12-21 08:16 | Outpatient (BNVA) | payer MEDICARE, SELFPAY | PROVIDERS: Visit Provider Internal Medicine | DX: Z00.00 Encounter for general adult medical examination without abnormal findings (principal); M10.9 Gout, unspecified | CPT/HCPCS: 99212 ==

== ENCOUNTER 2024-12-21 09:40 | Outpatient (REF) | payer MEDICARE, SELFPAY ==
[2024-12-21 11:35] LABS: MANUAL DIFF FLAG NO
[2024-12-21 11:39] LABS: Hematocrit 47.7 % (42.0-52.0); Hemoglobin 15.9 g/dl (14.0-18.0); Imm Gran Abs Auto 0.02 X10*3/uL (0.00-0.03); Imm Gran Pct Auto 0.3 % (0.0-0.4); Lymphocytes Absolute Auto 1.6 X10*3/uL (1.2-4.9); Mean Corpuscular HGB Conc 33.3 g/dl (31.0-36.0); Mean Corpuscular Hemoglobin 32.4 pg (27.0-33.0); Mean Corpuscular Volume 97.3 fL (80.0-98.0); NRBC Abs Auto 0.000 X10*3/uL (0.0-0.012); NRBC Pct Auto 0.0 /100WBC (0.0-0.2); Platelet Count 202 X10*3/uL (160-400); Red Blood Count 4.90 X10*6/uL (4.60-5.80); White Blood Count 7.0 X10*3/uL (4.8-10.8)
[2024-12-21 12:04] LABS: Hemoglobin A1C 145.5133 umol/L; Total Hemoglobin (HGBA1C) 4194.5260 umol/L
[2024-12-21 12:08] LABS: Alanine Aminotransferase 28 U/L (0-40); Albumin Level 4.4 g/dL (3.5-5.0); Alkaline Phosphatase 60 U/L (39-117); Anion Gap 11 (12-20); Aspartate Amino Transferase 29 U/L (5-37); Blood Urea Nitrogen 20 mg/dL (9-16); Calcium 9.4 mg/dL (8.4-10.2); Carbon Dioxide 27 mmol/L (22-29); Chloride 106 mmol/L (96-108); Cholesterol 202 mg/dL (<200); Estimated Glomerular Filt Rate > 60; HDL Cholesterol 55 mg/dL (>40); Potassium 4.4 mmol/L (3.3-5.1); Sodium 140 mmol/L (135-145); Total Protein 7.0 g/dL (6.5-8.0); Triglycerides 160 mg/dL (<150)
== END 2024-12-21 09:41 | disposition home or self-care (01) ==
LOC: HO.WFDLDS 09:40
PROVIDERS: Visit Provider Internal Medicine
DX: Z00.00 Encounter for general adult medical examination without abnormal findings (principal); Z13.220 Encounter for screening for lipoid disorders; Z13.228 Encounter for screening for other metabolic disorders; Z12.5 Encounter for screening for malignant neoplasm of prostate; R35.89 Other polyuria
CPT/HCPCS: 36415; 80053; 80061; 83036; 85025

== ENCOUNTER 2025-03-15 07:32 | Outpatient (REF) | payer MEDICARE, SELFPAY ==
--- OUTSIDE RECORDS SUMMARY | 2025-03-15 07:35 | XMS_ITS | Data Portability ---
Author Organization [facility], [address] Address [address] [place] [address] Assessment No assessment recorded. Plan of Treatment Reminders Order Date Submit Date Provider Last Modified By Organization Details Last Modified Time Details Appointments None recorded. Lab None recorded. Referral None recorded. Procedures None recorded. Surgeries None recorded. Imaging None recorded. Medication Orders Augmentin 875 mg-125 mg tablet 2022 023 [facility][id number], [address] [place], [address], 18:40:10 benzonatate 100 mg capsule 2022 023 [facility][id number], [address] [place], [address], 18:42:28 Patient TargetsNo targets recorded. Patient Instructions Encounter Date Encounter Id Patient Instructions Last Modified By Organization Details Last Modified Time 01/08/2023 [id number] ear infection (otitis media): care instructions Not available 01/08/2023 18:41:53 cough: care instructions Not available 01/08/2023 18:40:08 Reason for Referral None Reported. Problems No Known Problems Medical Equipment None Reported. Allergies No known drug allergies Medications Name Sig Start Date Stop Date Status Note LastModified by Organization Details LastModified Time fluconazole 100 mg tablet TAKE 1 TABLET BY MOUTH EVERY DAY FOR 14 DAYS 01/08 completed Not Available Not Available Not Available Augmentin 875 mg-125 mg tablet Take 1 tablet every 12 hours by oral route as directed for 7 days. 2022 active Not Available Not Available Not Avai lable fluconazole 150 mg tablet PLEASE SEE ATTACHED FOR DETAILED DIRECTION S 01/08 completed Not Available Not Available Not Available terbinafine HCl 250 mg tablet active Not Available Not Available Not Available benzonatate 100 mg capsule Take 1 capsule 3 times a day by oral route as needed for 10 days. 2022 active Not Available Not Available Not Avai lable clotrimazol e-betametha sone 1 %-0.05 % topical cream APPLY TO AFFECTED AREA TWICE A DAY FOR 14 DAYS 01/08 completed Not Available Not Available Not Available Vitals Date Recorded Respiratory rate Oxygen saturation Oxygen saturation in Arterial blood by Pulse oximetry Heart rate Systolic And Diastolic Provider Name and Address Organization Details Last Updated DateTime 3 19 /min 98 % 98 % 67 /min 136/99 mm[Hg] CLARISSE HARDY PA - [facility] 3 18:06:22 Social History None recorded. Functional Status None recorded. Mental Status None recorded. Family History Relationship Description Onset Age of this Age Resolved Age Notes LastModified by Organization Details LastModified Time Father No current problems or disability [email or web address] Not available 01/08 18:07:52 Mother No current problems or disability [email or web address] Not available 01/08 18:07:52 Medical History No medical history recorded. Immunizations Vaccine Type Date Status Note Provider Nam e and Address Organization Details Recorded Time Influenza, high-dose, quadrivalent, PF 2 completed CLARISSE HARDY null, PA - [facility] 01/08/2023 18:06:34 Influenza, adjuvanted, quadrivalent, PF 1 completed CLARISSE HARDY null, PA - [facility] 01/08/2023 18:06:34 COVID-19, mRNA, LNP-S, PF, 30 mcg/0.3 mL dose 1 completed CLARISSE HARDY null, PA - [facility] 01/08/2023 18:06:34 COVID-19, mRNA, LNP-S, PF, 30 mcg/0.3 mL dose 1 completed CLARISSE HARDY null, PA - [facility] 01/08/2023 18:06:34 COVID-19, mRNA, LNP-S, PF, 30 mcg/0.3 mL dose 1 completed CLARISSE HARDY null, PA - [facility] 01/08/2023 18:06:34 Pneumococcal conjugate PCV20, polysaccharide [id number] conjugate, adjuvant, PF 3 completed CLARISSE HARDY null, PA - [facility] 01/08/2023 18:06:34 COVID-19, mRNA, LNP-S, bivalent, PF, 30 mcg/0.3 mL dose 2 completed CLARISSE HARDY null, PA - [facility] 01/08/2023 18:06:34 Td (adult), 2 Lf tetanus toxoid, preservative free, adsorbed 1 completed CLARISSE HARDY null, PA - [facility] 01/08/2023 18:06:34 Past Encounters Encounter ID Performer Location Encounter Start Date Encounter Closed Date Diagnosis/Indication Diagnosis SNOMED-CT Code Diagnosis ICD10 Code Diagnosis IMO Codes Diagnosis Note [id number] [facility] [address] [place] [address] 11/04/2015 16:58:06 11/04/2015 17:57:[id number] [place], [place] [address]in [facility] [address] 10/27/2015 17:50:25 10/27/2015 18:13:[id number] [place], [place] [address]in [facility] [address] [place] [address] 7 05/01/2019 10:37:51 05/01/2019 11:08:[id number] [place], [place] [address]in [facility] [address] [place] [address] 7 09/13/2017 09:59:04 09/13/2017 10:59:[id number] [place], [place] [address]in [address] [address] 7 11/17/2017 19:03:00 11/17/2017 19:53:[id number] [place] [address] [facility] [address] [place] [address] 7 01/06/2019 11:29:04 01/06/2019 11:48:[id number] [place] [address] [facility] [address] [place] [address] 7 02/18/2021 17:51:05 02/18/2021 19:13:[id number] [place] [address] [facility] [address] [place] [address] 7 12/07/2018 11:14:09 12/07/2018 11:38:[id number] [place] [address] [facility] [address] 06/22/2020 10:53:58 06/22/2020 12:36:[id number] [place] [address] _Phillip [address] [address] 05/01/2019 10:35:23 05/01/2019 11:33:13 [id number] Tayler Viera NP _[address] [address] 01/08/2023 17:35:03 01/08/2023 18:47:23 Cough [id number] R05.9 Based on your Presentati on, Exam, and Lab Testing you are being diagnosed with bronchitis , most likely viral The following are my recommenda tions to help with your symptoms while your body fights this infection: 1. Take Ibuprofen or Tylenol if you do not have any allergies to these medication s. If you take a blood thinner you should not take NSAIDS like Ibuprofen. These medication will help with the inflammati on in your respirator y tract which should help the cough.2. Do not take any decongesta nts at this time because this will dry out that tract too much. If you have a lot of nasal congestion you can try nasal decongesta nts, but I would not take them more than 5 days.3. Use a humidifier or add a cup of water by your bed. Sometimes if our sleeping environmen t is too dry this can lead to cough4. Salt Water Gargles5. Saline nasal spray is helpful.6. Would recommend taking a antihistam ine to help with the congestion .7. Clean Surfaces regularly and try to stay isolated from family members. I would be seen again if you develop any of the following. 1. Cough develops last longer than 3 weeks.2. Develop shortness of breath or wheezing.3 . Severe Headache with vision changes4. Stiff Neck5. Fever does not reduce a few points with Ibuprofen or Tylenol. I would go immediatel y to the Emergency Room if you develop:1. Chest Pain2. Severe Shortness of breath3. Coughing up Blood. I would be seen again if you develop any of the following symptoms.1 . Fever > 101.02. Stiff neck - where you can't turn your neck3. Trouble swallowing your saliva - drooling4. Swelling of a lymph node in your throat that is painful to touch5. Difficulty breathing6 . Severe Headache Thank you for using [facility] today, please feel free to contact our office if you have any questions or concerns. Acute left otitis media [id number] H66.92 Based on your Presentati on, Exam, and Lab Testing you are being diagnosed with otitis media I am going to prescribe you and antibiotic to cover this infection. Please be sure to complete the full course of this antibiotic to prevent antibiotic resistance . It is also important to complete this antibiotic because this infection is what causes Scarlet Fever/Rheu matic Heart Disease. Antibiotic s will typically take 4-5 days to start to work with symptom improvemen t. The following are my other recommenda tions to help with symptoms and is important for this diagnosis: 1. Take Ibuprofen or Tylenol if you do not have any allergies to these medication s. If you take a blood thinner you should not take NSAIDS like Ibuprofen. These medication will help with the inflammati on in your respirator y tract which should help the cough. (I would alternate between Tylenol 650 mg and your Ibuprofen 600 mg every 4 hours)2. Do not take any Cold Medication s that have a Decongesta nt in it - this will dry out your throat and make the sore throat worse.3. Drinking Hot Tea with honey can help coat and soothe your throat. I would be seen again if you develop any of the following symptoms.1 . Fever > 101.02. Stiff neck - where you can't turn your neck3. Trouble swallowing your saliva - drooling4. Swelling of a lymph node in your throat that is painful to touch5. Difficulty breathing6 . Severe Headache Thank you for using [facility] today, please feel free to contact our office if you have any questions or concerns. Health Concerns Section Related Observation LastModified by Organization Detai ls LastModified Time None Recorded Concern Status LastModified by Organization Details LastModified Time None Recorded Advance Directives Directive None Recorded Payers Insurance Date Sequence Insurance Name Policy Number Policy [place] Covered Member ID [place] Member ID Guarantor Name 01/08/2023 1 [place] [employer] Juan Ramon Charles [id number] Juan Ramon Charles 01/08/2023 2 [place] [facility] ([id number]) [id number] Juan Ramon Charles [id number] Juan Ramon Charles Notes Date Note Type Note Provider Name and Address Organization Details Recorded Time 01/09/20 23 text/ht ml Ear problem UCReported by PatientHPIFor quality, patient reportscloggedanddecreased hearing. For severity, patient reportsmoderate. For context, patient reportssick contactbut reportsno recent swimming/water in ear. For associated symptoms, patient reportspopping noise in the ears. For source of patient information, patient reportsinformation obtained from patientandpatient arrived at urgent care ambulatory. For location, patient reportsleft. For duration, patient reportsstarted ___,___ days, and2 weeks. For modifying factors, patient reportsdoes not hurt to lie on, or pull on earanddoes not hurt to chew. CoughReported by PatientHPIFor associated symptoms, patient reportspost nasal dripbut reportsno fever,no chills,no heartburn,no nausea, andno vomiting. For quality, patient reportsintermittentandsymptoms worse with lying down. For timing, patient reportsgradual. For context, patient reportsnon-smoker. For modifying factors, patient reportscough suppressant. Patient presents with lingering cough and left ear pain with clogged sensation. Had uri for the past 2 weeks , resolving , but cough is persistent Tayler Viera NP [address] [place], [address], PA - [facility] 01/09/2023 09:18:32
[2025-03-15 12:25] LABS: Prostate Specific Antigen 0.18 ng/mL (<0.05-4.0)
== END 2025-03-15 07:33 | disposition home or self-care (01) ==
LOC: HO.WFDLDS 07:32
PROVIDERS: Visit Provider Nurse Practitioner Family
DX: Z12.5 Encounter for screening for malignant neoplasm of prostate (principal); R39.12 Poor urinary stream; Z87.898 Personal history of other specified conditions
CPT/HCPCS: 36415; 84153

== ENCOUNTER 2025-03-17 08:52 | Outpatient (AMB) | payer MEDICARE, SELFPAY ==
--- NOTE | 2025-03-17 08:56 | MHC.OFFVIS ---
Intake Visit Reasons: 1y/PSA/PVR Intake Note: Patient is present for 1Y/PSA/PVR Urology Medication:NONE Antibiotic Allergy:NONE Blood Thinner: Todays PVR:24ML'S Staff Development Coordinator Rn Required: No Allergies No Known Allergies Allergy (Verified 03/17/25 09:38) Medication List - Last Reconciled 03/17/25 by BEL Montgomery No Known Home Meds HPI Comments Details: Juan Ramon is a pleasant 69-year-old male patient. He has a past medical history of gout, hemorrhoids, and obesity. He presents to the office today for follow-up. In discussion with the patient today he reports to be doing and feeling well he reports since his last office visit here he did have 1 episode of urinary incontinence while at [employer] with his grandchildren. He reports this episode was a solitary event. He otherwise denies having had any bothersome urinary issues or concerns. He does continue to report urinary hesitancy however feels he is managing this well independently. In office urinalysis results reviewed with the patient today. PVR 24 mL. Previous workup has included a retroperitoneal ultrasound 02/10 notes bilateral kidneys are normal in size, contour, and echogenicity. Bilateral kidneys with no lesions, calculi, and or hydronephrosis. The bladder is well distended. Bilateral ureteral jets are demonstrated. Pre void bladder volume is approximately 530 mL. Postvoid bladder volume is approximately 115 mL. The prostate volume is 23 mL prostate gland measures 4.4 cm in maximum dimension. PSAs are as follows: PSA: 12/10 0.2, 03/13 0.2. When asked he denies urinary urgency, urinary frequency, incontinence, nocturia, hematuria, dysuria, foul smelling urine, flank pain, fever, and or chills. We discussed at length potential causes of lower urinary tract symptoms patient is/has experiencing. Discussed possible near future in office cystoscopy and or urodynamics for further assessment evaluation if symptoms continue and or worsen. He discusses going to his local [employer] 6 times per week with his . He otherwise offers no other issues or concerns at this time. [facility] Medical History Obese Hemorrhoids Gout Surgical History Hx of tooth extraction History of colonoscopy Family History Mother Kidney disease Father Kidney disease Social History Household Members: Spouse Housing: House Are you a primary managed care director to a significant other at home: No Do you presently have visiting nurse or other home services: No 75 years or older and lives alone: No Alcohol intake: current Alcohol intake frequency: a few times a week Alcohol type: beer Patient Tobacco Use Status: Current someday Tobacco user Tobacco use type: Cigar (When golfing and nothing consistent.) e-Cigarette/Vaping Use: Never Used service: No Current occupational status: retired Gender identity: Male Cognitive needs: No Hearing needs: No Vision needs: Yes (wears glasses) Review of Systems Const All systems reviewed & are unremarkable except as noted in HPI and below Physical Exam Const General: cooperative, healthy appearing, comfortable, no acute distress, well developed, alert and awake Orientation/consciousness: patient oriented x3 Limitations: no limitations HEENT Head: Yes normal to inspection, Yes normocephalic and Yes atraumatic Ears: hearing grossly normal bilaterally Eyes General: appearance normal, both eyes and all related structures Neck Neck: Yes normal visual inspection and Yes trachea midline Chest Chest palpation & inspection: normal inspection of the chest Resp Effort & Inspection: normal respiratory effort and able to speak in complete sentences Cardio Rate: regular rate GI Inspection: Yes normal to inspection General: Yes no CVA tenderness Back/Spine/Pelvis Back: no CVA tenderness Skin General skin exam: no rashes or lesions noted Neuro General: patient oriented x3 Extrem General: Yes normal to inspection Psych Appearance: grossly normal and well kempt Mental Status: mental status grossly normal Speech and movement: Normal speech and movement present and Clear speech present Affect: normal affect Attitude: cooperative Thought process: Normal thought process present Thought content: Normal thought content present Insight: Fair insight present (Psych) Judgement: Fair judgement present (Psych) Office Procedures Post Void Residual Post Residual Void Post Void Residual (PVR): 24 26785-Cukt Void Residual by ultrasound Results AMB Urinalysis, Automated UA Leukoctes 0 Lizandro/uL Last Edit by ELOISA Mcgarry on 03/17/25 09:07 UA Nitrite Negative Last Edit by ELOISA Mcgarry on 03/17/25 09:07 UA Urobilinogen 0.2 mg/dL Last Edit by ELOISA Mcgarry on 03/17/25 09:07 UA Protein 0 mg/dL Last Edit by ELOISA Mcgarry on 03/17/25 09:07 UA pH 6.0 Last Edit by Kira Cain [facility] on 03/17/25 09:07 UA Blood 0 Asael/uL Last Edit by Kira Cain [facility] on 03/17/25 09:07 UA Specific Pyatt 1.015 Last Edit by ELOISA Mcgarry on 03/17/25 09:07 UA Ketone Negative Last Edit by Kira Cain [facility] on 03/17/25 09:07 UA Bilirubin 0 mg/dL Last Edit by Kira Cain [facility] on 03/17/25 09:07 UA Glucose 0 mg/dL [facility] 03/17/[facility] 09:07 Results Reviewed Results Reviewed: Laboratory Last Values Urine pH (Auto) 6.0 03/17/25 09:07 Specific Pyatt (Auto) 1.015 03/17/25 09:07 Urine Protein (Auto) 0 mg/dL 03/17/25 09:07 Glucose (UA)(Auto) 0 mg/dL 03/17/25 09:07 Urine Ketones (Auto) Negative 03/17/25 09:07 Urine Blood (Auto) 0 Asael/uL 03/17/25 09:07 Urine Nitrite (Auto) Negative 03/17/25 09:07 Urine Bilirubin (Auto) 0 mg/dL 03/17/25 09:07 Urine Urobilinogen (Auto) 0.2 mg/dL 03/17/25 09:07 Leukocyte Esterase (Auto) 0 Lizandro/uL 03/17/25 09:07 Assessment & Plan Assessment & Plan (1) History of urinary hesitancy: Code(s): Z87.898 - Personal history of other specified conditions Category: Medical Plan In office urinalysis results reviewed with the patient today; as noted above. PVR 0 mL. Recent PSA results reviewed with the patient today; as noted above. Will continue with surveillance monitoring. Patient reports be happy with current voiding parameters. Will obtain PSA and PVR in 1 year. Follow-up in 1 year with PSA and PVR; or sooner with any issues, concerns, and or questions Orders: Orders AMB Urinalysis Automated Today Z13.9 - Encounter for screening, unspecified Patient Instructions: The patient had an opportunity to ask questions regarding the treatment plan. All questions were answered. Physical exam, labs, and imaging were discussed and reviewed in detail. As well as risks, benefits, and discussion of treatment choices. No major barriers to understanding were identified. The patient expressed understanding and agreement with the above treatment plan. The patient was made aware they should contact our office by phone for worsening of their current condition, the appearance of new symptoms, or with any questions or concerns. Compliance is encouraged with any medications and follow up testing that is ordered. It is a privilege to be allowed the opportunity to participate in? your urological care.? Again, if you have any questions or concerns If you have any questions or concerns please do not hesitate to contact me. The office is [phone]. This note is constructed using voice recognition software. While every effort has been made to ensure accuracy gage maker errors may have been included. Yours sincerely, BEL Montgomery Coding Level of Care Code Est Pt Level 3 (85482) Complex EM visit Add On G2211 Diagnoses History of urinary hesitancy Z87.898 CPT Codes Post Residual Void - PVR CPT Code: 82979-Exry Void Residual by ultrasound ([id number])
== END 2025-03-17 09:40 | disposition home or self-care (01) ==
LOC: HO.HUSH 08:53
PROVIDERS: PCP Internal Medicine; Visit Provider Nurse Practitioner Family
DX: Z87.898 Personal history of other specified conditions (principal); Z13.9 Encounter for screening, unspecified
CPT/HCPCS: 99213; G2211

== ENCOUNTER → 2025-03-17 08:52 | Outpatient (BNVA) | payer MEDICARE, SELFPAY | PROVIDERS: PCP Internal Medicine; Visit Provider Nurse Practitioner Family | DX: Z13.89 Encounter for screening for other disorder (principal); Z87.898 Personal history of other specified conditions; Z13.9 Encounter for screening, unspecified; M10.9 Gout, unspecified; E66.9 Obesity, unspecified | CPT/HCPCS: 51798; 81003; 99212 ==